=== PATIENT | male | born 1965 | race Two or more races ===

== ENCOUNTER 2024-07-19 17:35 | Emergency (ER) | payer BC ==
[~2024-07-19] VITALS: Ht 188 cm; Wt 130.2 kg
[2024-07-19 18:28] LABS: BASOPHILS # (AUTO) 0.03 K/uL (0.00-0.20); BASOPHILS % (AUTO) 0.3 % (0.0-5.0); EOSINOPHILS # (AUTO) 0.02 K/uL (0.00-0.70); EOSINOPHILS % (AUTO) 0.2 % (0.0-8.0); HEMATOCRIT 42.3 % (42-54); IMMATURE GRANULOCYTE ABSOLUTE 0.04 K/uL (0-1); LYMPHOCYTES # (AUTO) 2.1 K/uL (1.0-4.8); LYMPHOCYTES % (AUTO) 17.7 % (21.0-51.0); MEAN CORPUSCULAR HEMOGLOBIN 31.7 pg (27.0-33.0); MEAN CORPUSCULAR HGB CONC 32.9 g/dL (32.0-36.0); MEAN CORPUSCULAR VOLUME 96.4 fL (79-99); MONOCYTES # (AUTO) 1.2 K/uL (0.1-1.0); MONOCYTES % (AUTO) 9.9 % (3.0-13.0); NEUTROPHILS # (AUTO) 8.5 K/uL (1.8-7.7); NEUTROPHILS % (AUTO) 71.6 % (40.0-77.0); PLATELET COUNT (AUTO) 225 K/uL (130-400); RED BLOOD CELL COUNT(AUTO) 4.39 MIL/uL (4.50-6.20); RED CELL DISTRIBUTION WIDTH 12.8 % (11.0-15.5); WHITE BLOOD COUNT (AUTO) 11.9 K/uL (4.8-10.8)
[2024-07-19 18:30] LABS: APPEARANCE,URINE CLOUDY (CLEAR); BILIRUBIN,URINE NEGATIVE (NEGATIVE); COLOR,URINE LIGHT-YELLOW (YELLOW); GLUCOSE, URINE (UA) NEGATIVE (NEGATIVE); KETONES,URINE NEGATIVE (NEGATIVE); LEUKOCYTE ESTERASE ,URINE NEGATIVE Leu/uL (NEGATIVE); NITRATE,URINE NEGATIVE (NEGATIVE); OCCULT BLOOD,URINE LARGE (NEGATIVE); PROTEIN,URINE 10 mg/dL (NEGATIVE); UROBILINOGEN,URINE 0.2 mg/dL (0.2-1.0)
[2024-07-19 18:31] LABS: ADD UA MICROSCOPIC YES
[2024-07-19 18:33] LABS: BACTERIA,URINE RARE /HPF (None Seen); MUCUS,URINE RARE LPF (None Seen); RBC,URINE >100 /HPF (0-1); UNCLASSIFIED CRYSTAL 3 /HPF (None Seen); YEAST,URINE BUDDING RARE /HPF (None Seen)
[2024-07-19 18:39] LABS: CREATININE 1.2 mg/dL (0.5-1.3); POTASSIUM 4.2 mmol/L (3.5-5.1)
[2024-07-19 18:43] LABS: BILIRUBIN,TOTAL 0.8 mg/dL (0.2-1.0); TOTAL PROTEIN, SERUM 8.3 g/dL (6.0-8.3)
[2024-07-19] MEDS ORDERED: LEVO750T39 PO (18:52)
[2024-07-19] MEDS ORDERED: KETO10 PO (18:52)
[2024-07-19] MEDS ORDERED: TAMS-1 PO (18:52)
[2024-07-19 18:55] LABS: B-TYPE NATRIURETIC PEPTIDE 124 pg/mL (0-100)
[2024-07-19] MEDS: ketOROlac 15MG/ML VIAL (15MG/ML) IM ONE (19:01)
[2024-07-19 19:20] VITALS: BP 159/78; PULSE 64; RESP 18; TEMP 98; O2SAT 98
[2024-07-19] MEDS ORDERED: LACT10SO9 PO (19:21)
== END 2024-07-19 19:58 | disposition home or self-care (01) ==
LOC: EDH 17:35
DX: N13.30 Unspecified hydronephrosis (principal); N13.4 Hydroureter; R10.31 Right lower quadrant pain; N13.2 Hydronephrosis with renal and ureteral calculous obstruction; N39.0 Urinary tract infection, site not specified; Z79.899 Other long term (current) drug therapy
CPT/HCPCS: 99284; 74176; 71045; 84484; 80053; 83880; 83690; 85025; 87086; 81001; 36415; 96372; 93005; J1885